=== PATIENT | female | born 1965 | race African-American/Black ===

== ENCOUNTER 2019-08-10 14:55 | Emergency (ER) | payer MEDICAID, OTHER ==
[~2019-08-10] VITALS: Ht 171.4 cm; Wt 63.5 kg
[~2019-08-10 14:55] MED LIST: ALBUTEROL SULF8.5 GM INH; AZITHROMYCIN250 MG ORAL; PREDNISONE20 MG ORAL; PROVENTIL HFA6.7 G1 IH; SPIRIVA INHALE1 PUF1 INH
[2019-08-10] MEDS ORDERED: Solu-MEDROL 125mg Inj IVP ONE (15:00)
[2019-08-10] MEDS ORDERED: Doxycycline Monohydrate 100mg ORAL ONE (15:00)
--- NOTE | 2019-08-10 15:02 | NUR ---
ED Nurse Note: patient brought into ED from the street by ambulance [facility] due to asthma exacerbation. patient also reports being homeless, unable to eat for the past 5 days and kept vomiting. patient reports hx of asthma and COPD, admits to using "cracks, smoking, alcohol." patient reports she is not taking good care of herself. per EMS patient had 2 albuterol treatments en route.
--- NOTE | 2019-08-10 15:06 | Emergency Room Report ---
History of Present Illness General Chief Complaint: Dyspnea/Respdistress Present Illness HPI Disclaimer: Please note that this report is being documented using DRAGON technology. This can lead to erroneous entry secondary to incorrect interpretation by the dictating instrument. HPI: 54-year-old female presents for evaluation of shortness of breath. She has a history of COPD and asthma. She reports 5 days worsening cough shortness of breath and that her albuterol inhalers are no longer working. She admits to continuing smoking as well as smoking crack cocaine earlier today when her symptoms suddenly exacerbated. She received 2 breathing treatments by EMS prior to arrival. EMS noted expiratory wheezes which resolved after breathing treatments. She denies any fevers or chills. She has had some epigastric discomfort and vomiting with meals but is able to tolerate liquids. Also notes alcohol use over the past few days. Denies any lower extremity swelling or edema. No history of CAD or heart failure per patient. Denies recent steroid or antibiotic use. PMH: COPD, asthma, substance abuse PSH: Reviewed Allergies: None reported Social Hx: Crackle can use, tobacco use, alcohol use Allergies: Coded Allergies: No Known Allergies (Unverified , 11/15/15) Nursing Documentation-PMH Hx Cardiac Problems: No Hx Asthma: Yes Hx COPD: Yes Hx Cancer: No Hx Gastrointestinal Problems: No Hx Neurological Problems: No Review of Systems All Other Systems: negative except mentioned in HPI Physical Exam General: Awake and alert, no acute distress HEENT: NC/AT. EOMI. Cardiovascular: RRR. S1 and S2 normal. No murmur appreciated Resp: Currently receiving a breathing treatment. Normal work of breathing. Intermittent cough. No wheezes appreciable. No crackles appreciated Abdomen: Abdomen is soft, nondistended. Nontender Skin: Intact. No abrasions, laceration or rash over the exposed skin MSK: Normal tone and bulk. Moving all extremities. No obvious deformity. No lower extremity edema Neuro: Awake and alert. Mentating appropriately. Medical Decision Making Diagnostic Impression: Primary Impression: COPD exacerbation Additional Impressions: Elevated troponin Pulmonary nodules ER Course This a 54-year-old female with a history of asthma/COPD presenting for evaluation of worsening shortness of breath over the past 5 days, recently using crack cocaine, as well as epigastric discomfort for a few days in setting of alcohol use. She arrives in no acute distress, breathing in full sentences, no wheezes appreciated on exam and is currently receiving a breathing treatment by EMS. Abdomen is soft, nondistended and nontender. Differential includes but is not limited to gastritis, gastroenteritis, pancreatitis, cholecystitis, asthma exacerbation, COPD exacerbation, bronchitis, pleurisy, pneumonia, ACS to name a few. Start a broad metabolic and cardiac work-up. Will provide IV steroids, continue breathing treatments, antiemetics, IV hydration and antacids. Doxycycline ordered as well given her COPD status and high risk. Disposition depending on patient reevaluation and lab results. Laboratory Tests Test 08/10/19 15:04 08/10/19 16:19 White Blood Count 10.9 K/UL (4.8-10.8) H Red Blood Count 5.41 M/UL (4.20-5.40) H Hemoglobin 17.1 G/DL (12.0-16.0) H Hematocrit 50.8 % (37.0-47.0) H Mean Corpuscular Volume 94 FL (80-99) Mean Corpuscular Hemoglobin 31.7 PG (27.0-31.0) H Mean Corpuscular Hemoglobin Concent 33.7 G/DL (32.0-36.0) Red Cell Distribution Width 11.8 % (11.6-14.8) Platelet Count 294 K/UL (150-450) Mean Platelet Volume 7.4 FL (6.5-10.1) Neutrophils (%) (Auto) 76.6 % (45.0-75.0) H Lymphocytes (%) (Auto) 9.4 % (20.0-45.0) L Monocytes (%) (Auto) 13.0 % (1.0-10.0) H Eosinophils (%) (Auto) 0.0 % (0.0-3.0) Basophils (%) (Auto) 1.1 % (0.0-2.0) Sodium Level 136 MMOL/L (136-145) Potassium Level 3.6 MMOL/L (3.5-5.1) Chloride Level 92 MMOL/L (98-107) L Carbon Dioxide Level 35 MMOL/L (21-32) H Anion Gap 9 mmol/L (5-15) Blood Urea Nitrogen 12 mg/dL (7-18) Creatinine 0.6 MG/DL (0.55-1.30) Estimate Glomerular Filtration Rate > 60 mL/min (>60) Glucose Level 150 MG/DL (74-106) H Calcium Level 9.4 MG/DL (8.5-10.1) Total Bilirubin 0.6 MG/DL (0.2-1.0) Aspartate Amino Transferase (AST) 35 U/L (15-37) Alanine Aminotransferase (ALT) 29 U/L (12-78) Alkaline Phosphatase 84 U/L (46-116) Troponin I 0.134 ng/mL (0.000-0.056) Total Protein 8.1 G/DL (6.4-8.2) Albumin 3.1 G/DL (3.4-5.0) L Globulin 5.0 g/dL Albumin/Globulin Ratio 0.6 (1.0-2.7) L Lipase 44 U/L (73-393) L Arterial Blood pH 7.287 (7.350-7.450) Arterial Blood Partial Pressure CO2 62.5 mmHg (35.0-45.0) *H Arterial Blood Partial Pressure O2 137.0 mmHg (75.0-100.0) H Arterial Blood HCO3 29.2 mmol/L (22.0-26.0) H Arterial Blood Oxygen Saturation 97.8 % (95-100) Arterial Blood Base Excess 0.7 (-2-2) Moustapha Test Positive EKG Diagnostic Results EKG Time: 15:17 Rate: tachycardiac Rhythm: NSR ST Segments: no acute changes Other Impression Sinus tachycardia, normal axis, normal intervals nonspecific ST and T wave changes. Rhythm Strip Diag. Results Rhythm Strip Time: 15:17 EP Interpretation: yes Rate: 120s Rhythm: NSR, no PVC's, no ectopy Chest X-Ray Diagnostic Results Chest X-Ray Diagnostic Results : Chest X-Ray Ordered: Yes # of Views/Limited/Complete: 1 View Indication: Shortness of Breath Interpretation: no consolidation, no effusion, no pneumothorax, no acute cardiopulmonary disease Impression: No acute disease Electronically Signed by: Electronically signed by Dr. Félix Shane Reevaluation Time: 16:13 Reevaluation Impression Patient received breathing treatment and steroids but desaturated to 80% when oxygen was removed. Return to 90% on 2 L. Troponin returned elevated at 0.134. EKG shows sinus tachycardia but no obvious ischemia. Previous troponin at our facility was negative on last visit. Likely in the setting of crack cocaine use this morning she has a little bit of a Trop leak. Will give aspirin. Patient will require admission for COPD exacerbation and further evaluation of the troponin elevation. 1750: Discussed with caregivers non medical for the patient's insurance plan. She will be transferred to [facility] for further treatment of COPD exacerbation. She received doxycycline however radiology interpretation concerning for micronodules. They are recommending CT. I discussed these findings with transferring physician. They will complete the CT on their part. I did obtain blood cultures. Results will be sent over once they are finalized. Patient is stable for transfer. She is tachycardic but continues to receive breathing treatments. Saturating 90% on 2 L. Disposition: XFER SHT-TRM HOSP Condition: Serious Félix Shane MD Aug 10, 2019 15:06
[2019-08-10 15:23] VITALS: BP 131/79
[2019-08-10 15:41] LABS: BASOPHILS % (AUTO) 1.1 % (0.0-2.0); HEMATOCRIT 50.8 % (37.0-47.0); HEMOGLOBIN 17.1 G/DL (12.0-16.0); LYMPHOCYTES % (AUTO) 9.4 % (20.0-45.0); MEAN CORPUSCULAR VOLUME 94 FL (80-99); NEUTROPHILS % (AUTO) 76.6 % (45.0-75.0); PLATELET COUNT 294 K/UL (150-450); RED BLOOD COUNT 5.41 M/UL (4.20-5.40); RED CELL DISTRIBUTION WIDTH 11.8 % (11.6-14.8); WHITE BLOOD COUNT 10.9 K/UL (4.8-10.8)
[2019-08-10 15:55] LABS: ANION GAP 9 mmol/L (5-15); BLOOD UREA NITROGEN 12 mg/dL (7-18); CALCIUM 9.4 MG/DL (8.5-10.1); CARBON DIOXIDE 35 MMOL/L (21-32); CHLORIDE 92 MMOL/L (98-107); CREATININE 0.6 MG/DL (0.55-1.30); POTASSIUM 3.6 MMOL/L (3.5-5.1); SODIUM 136 MMOL/L (136-145)
[2019-08-10 16:00] LABS: ALANINE AMINOTRANSFERASE 29 U/L (12-78); ALBUMIN 3.1 G/DL (3.4-5.0); ALBUMIN/GLOBULIN RATIO 0.6 (1.0-2.7); ALKALINE PHOSPHATASE 84 U/L (46-116); ASPARTATE AMINO TRANSFERASE 35 U/L (15-37); BILIRUBIN,TOTAL 0.6 MG/DL (0.2-1.0)
[2019-08-10] MEDS ORDERED: Aspirin Baby 81mg ORAL ONE (16:15)
[2019-08-10] MEDS: Albuterol/Ipratropium 3ml neb HHN SCH ×2 (16:17→17:28)
--- NOTE | 2019-08-10 16:50 | NUR ---
ED Nurse Note: DR Shane ok for the patient to eat, sandwich and juice provided. patient able to tolerate.
[2019-08-10 16:55] VITALS: BP 128/72
[2019-08-10] MEDS ORDERED: guaiFENesin 100mg/5ml Liq ud ORAL PRN (17:00)
--- NOTE | 2019-08-10 17:33 | Diagnostic Imaging Report ---
EXAM: XR Chest, 1 View CLINICAL HISTORY: SOB TECHNIQUE: Frontal view of the chest. COMPARISON: No relevant prior studies available. FINDINGS: Lungs: Redemonstrated pulmonary hyperexpansion. Diffuse reticular opacities. Question presence of pulmonary micronodules, potentially miliary appearance of diffuse hematogenous infection or neoplasm. CT scan could further assess if warranted. Pleural space: Unremarkable. No pneumothorax. Heart: Unremarkable. No cardiomegaly. Mediastinum: Unremarkable. Bones/joints: Unremarkable. IMPRESSION: Redemonstrated pulmonary hyperexpansion. Diffuse reticular opacities. Question presence of pulmonary micronodules, potentially miliary appearance of diffuse hematogenous infection or neoplasm. CT scan could further assess if warranted.
[2019-08-10] MEDS ORDERED: Piperacillin/Tazobactam 3.375 GM in NS 110 ML IVPB ONE (18:00)
[2019-08-10] MEDS ORDERED: Promethazine/Codeine 5ml UD ORAL ONE (18:00)
[2019-08-10] MEDS ORDERED: Vancomycin 1 GM in NS 275 ML IVPB ONE (18:00)
[2019-08-10 18:50] VITALS: BP 106/89
--- NOTE | 2019-08-10 19:05 | NUR ---
HAND-OFF: Report given to Felicity STOUT.
--- NOTE | 2019-08-10 19:07 | NUR ---
ED Nurse Note: Received report from ROBERTH Mcnair. Patient resting in bed, no acute distress.
[2019-08-10 19:10] VITALS: BP 121/71
--- NOTE | 2019-08-10 19:29 | NUR ---
ED Nurse Note: Report given to ROBERTH Rapp at [facility].
[2019-08-10 19:40] VITALS: BP 125/82
--- NOTE | 2019-08-10 19:40 | NUR ---
ER DISCHARGE NOTE: Patient transferred to [facility] via [facility] with [facility] EMS [facility] in stable condition, report given. Per Dionte at [facility], ok to send patient with Vancomycin to be initiated there. Patient aao x 4 and ambulatory upon transfer in stable condition. EMS took all patient belongings.
== END 2019-08-10 19:40 | disposition short-term general hospital (02) ==
LOC: EDUNIT# 14:55 → EDBD 14:55 → EMR 15:28 → CANBEDREQ 19:54
DX: J44.1 Chronic obstructive pulmonary disease with (acute) exacerbation (principal); R79.89 Other specified abnormal findings of blood chemistry; R91.8 Other nonspecific abnormal finding of lung field; R00.0 Tachycardia, unspecified
CPT/HCPCS: 36415; 36600; 71045; 80053; 82803; 83690; 84484; 85025; 86710; 87040; 93005; 94640; 96361; 96365; 96367; 96375; J2405; J2543; J2930; J3370; J7030; J7050; S0028; Z7502; 99285; J7620